=== PATIENT | male | born 1980 | race African-American/Black ===

== ENCOUNTER 2018-05-19 20:27 | Emergency (ER) | payer SELFPAY ==
[2018-05-19] MEDS ORDERED: Adacel (T-DAP) 0.5 ML VIAL ONE (21:06)
== END 2018-05-19 21:59 | disposition home or self-care (01) ==
LOC: ERS 20:27
DX: S61.217A Laceration without foreign body of left little finger without damage to nail, initial encounter (principal); I10 Essential (primary) hypertension; W26.0XXA Contact with knife, initial encounter
CPT/HCPCS: 90471; 90715